=== PATIENT | female | born 1990 | race Caucasian/White ===

== ENCOUNTER → 2017-04-29 | Outpatient (CLI) | payer MEDICAID ==
[2017-04-29 09:16] LABS: Basophils % (A) 0 %; CH 28.3; CHCM 32.9; Eosinophils % (A) 1 %; HCT 44.5 % (34.0-46.0); HDW 2.52; HGB 14.2 gm/dL (11.4-16.0); Luc # (Auto) 0.16; Luc % (Auto) 3; Lymphocytes # (A) 2.2 k/uL (1.0-4.8); Lymphocytes % (A) 41 %; MCH 27.5 pg (25.0-35.0); MCHC 31.9 g/dL (31.0-37.0); MCV 86.4 fL (80.0-100.0); Mean Platelet Volume 6.8; Monocytes # (A) 0.3 k/uL (0-1.0); Monocytes % (A) 6 %; Neutrophils # (A) 2.7 k/uL (1.3-7.7); Neutrophils % (A) 49 %; RBC 5.15 m/uL (3.80-5.40); RDW 12.6 % (11.5-15.5); WBC 5.4 k/uL (3.8-10.6); WBC (Perox) 5.57
[2017-04-29 09:43] LABS: ALT 22 U/L (9-52); AST 19 U/L (14-36); Alkaline Phosphatase 84 U/L (38-126); Anion Gap 13 mmol/L; Blood Urea Nitrogen 10 mg/dL (7-17); Calcium 9.4 mg/dL (8.4-10.2); Carbon Dioxide 24 mmol/L (22-30); Chloride 105 mmol/L (98-107); Cholesterol 169 mg/dL (<200); Glucose 85 mg/dL (74-99); HDL Cholesterol 53 mg/dL (40-60); Non-African American GFR(MDRD) >60 (>60 ml/min/1.73 sqM); Potassium 4.4 mmol/L (3.5-5.1); Sodium 142 mmol/L (137-145); Total Protein 7.5 g/dL (6.3-8.2); Triglycerides 59 mg/dL (<150)
== END | disposition home or self-care (01) ==
LOC: LABWHC1 08:44
PROVIDERS: ATTEND Internal Medicine
DX: Z00.00 Encounter for general adult medical examination without abnormal findings (principal); D50.9 Iron deficiency anemia, unspecified
CPT/HCPCS: 36415; 80053; 80061; 84443; 85025

== ENCOUNTER → 2017-11-16 | Outpatient (CLI) | payer MEDICAID ==
--- NOTE | 2017-11-16 08:55 | US ---
EXAMINATION TYPE: US thyroid st tissue head/neck DATE OF EXAM: 11/16/2017 COMPARISON: Prior thyroid ultrasound May 09, 2013 CLINICAL HISTORY: Goiter E04.9. felt enlarged gland GLAND SIZE: Right Lobe: 4.7 x 1.3 x 1.0 cm Overall Parenchyma: homogenous Left Lobe: 3.9 x 1.0 x 1.3 cm Overall Parenchyma: homogeneous Isthmus Thickness: 0.4 cm NODULES RIGHT: # of nodules measured on right: 0 LEFT: # of nodules measured on left: 0 ISTHMUS: # of nodules measured in the isthmus: 0 Bilateral neck scanned, no evidence of lymphadenopathy. small cystic area left lobe as seen previously. Thyroid gland is normal in size and homogeneous in echotexture. There is 4 mm cystic nodule posterior ly lower pole level with central colloid marked towards end of study. IMPRESSION: Thyroid gland remains normal in size without new suspicious solid or cystic nodule.
--- NOTE | 2017-11-16 09:52 | USB ---
Reason for exam: clinical finding. History: Took hormonal contraceptives beginning at age 19. Indicated problem(s): lump or thickening in the left breast. Physical Findings: Nurse Summary: There is a 1.5 cm nodule in the left breast at 3:30 o'clock (nurse dw). US Breast LT Left breast ultrasound includes all four quadrants, the retroareolar region and axilla. Finding demonstrates no cystic or solid lesion seen. These results were verbally communicated with the patient and result sheet given to the patient on 11/16/17. ASSESSMENT: Negative, BI-RAD 1 RECOMMENDATION: Clinical management. Manage patient on a clinical basis.
== END | disposition home or self-care (01) ==
LOC: RADUSWWP 08:15
PROVIDERS: ATTEND Internal Medicine
DX: N63.20 Unspecified lump in the left breast, unspecified quadrant (principal); E04.9 Nontoxic goiter, unspecified
CPT/HCPCS: 76536

== ENCOUNTER 2018-09-13 18:40 | Emergency (ER) | payer OTHER, MEDICAID ==
[2018-09-13] MEDS ORDERED: SODIUM CHLORIDE 0.9% 1,000 ML IV STA (19:22)
[2018-09-13] MEDS ORDERED: ORPHENADRINE 30 MG/ML 2 ML VIAL IVP STA (19:24)
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
[2018-09-13 19:56] LABS: Basophils % (A) 0 %; Eosinophils # (A) 0.1 k/uL (0-0.7); Eosinophils % (A) 1 %; HCT 38.4 % (34.0-46.0); HGB 12.9 gm/dL (11.4-16.0); Lymphocytes % (A) 31 %; MCH 28.5 pg (25.0-35.0); MCHC 33.7 g/dL (31.0-37.0); MCV 84.5 fL (80.0-100.0); Mean Platelet Volume 6.9; Monocytes # (A) 0.4 k/uL (0-1.0); Monocytes % (A) 4 %; Neutrophils # (A) 5.9 k/uL (1.3-7.7); Neutrophils % (A) 62 %; Platelet Count 256 k/uL (150-450); RBC 4.54 m/uL (3.80-5.40); RDW 12.7 % (11.5-15.5); WBC 9.6 k/uL (3.8-10.6)
[2018-09-13 19:58] LABS: ALT 18 U/L (9-52); AST 24 U/L (14-36); Albumin 3.6 g/dL (3.5-5.0); Alkaline Phosphatase 89 U/L (38-126); Anion Gap 9 mmol/L; Blood Urea Nitrogen 11 mg/dL (7-17); Calcium 8.9 mg/dL (8.4-10.2); Carbon Dioxide 23 mmol/L (22-30); Chloride 107 mmol/L (98-107); Glucose 126 mg/dL (74-99); Potassium 3.6 mmol/L (3.5-5.1); Sodium 139 mmol/L (137-145); Total Bilirubin 0.3 mg/dL (0.2-1.3); Total Protein 6.8 g/dL (6.3-8.2)
[2018-09-13 20:08] LABS: Appearance,Urine Clear (Clear); Bacteria,Urine Rare /hpf; Bilirubin,Urine Negative (Negative); Blood,Urine Trace (Negative); Color,Urine Light Yellow; Glucose,Urine (UA) Negative (Negative); Ketones,Urine Negative (Negative); Leukocyte Esterase,Urine Trace (Negative); Mucus,Urine Occasional /hpf; Nitrite,Urine Negative (Negative); Protein,Urine Negative (Negative); RBC,Urine 1 /hpf (0-5); Squamous Epithelial Cell,Urine 1 /hpf (0-4); Urobilinogen,Urine <2.0 mg/dL (<2.0); WBC,Urine 1 /hpf (0-5)
[2018-09-13 20:18] LABS: Partial Thromboplastin Time 25.4 sec (22.0-30.0); Prothrombin Time 9.7 sec (9.0-12.0)
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
[2018-09-13] MEDS ORDERED: KETOROLAC 30 MG/ML 1 ML VIAL IVP STA (21:53)
[2018-09-13 22:11] VITALS: BP 135/81; PULSE 78; RESP 18; TEMP 98.2
== END 2018-09-13 22:05 | disposition home or self-care (01) ==
LOC: EC 18:40
DX: S16.1XXA Strain of muscle, fascia and tendon at neck level, initial encounter (principal); S39.001A Unspecified injury of muscle, fascia and tendon of abdomen, initial encounter; R51 Headache; Z53.29 Procedure and treatment not carried out because of patient's decision for other reasons; V43.52XA Car driver injured in collision with other type car in traffic accident, initial encounter; Y92.410 Unspecified street and highway as the place of occurrence of the external cause
CPT/HCPCS: 36415; 93005; 80053; 84484; 85025; 85610; 85730; 81001; 81025; 72040; 72170; 71046; 76700; 99285; 96374; 96361 ×2; J2360

== ENCOUNTER → 2019-11-23 | Outpatient (CLI) | payer OTHER ==
--- NOTE | 2019-11-24 15:36 | ECHOF ---
Referral Reason:I10 Hypertension MEASUREMENTS -------- HEIGHT: 157.5 cm WEIGHT: 78.9 kg BP: 152/87 RVIDd: 2.7 cm (< 3.3) IVSd: 0.9 cm (0.6 - 1.1) LVIDd: 4.1 cm (3.9 - 5.3) LVPWd: 1.0 cm (0.6 - 1.1) IVSs: 1.4 cm LVIDs: 2.7 cm LVPWs: 1.6 cm LA Diam: 3.0 cm (2.7 - 3.8) Ao Diam: 2.6 cm (2.0 - 3.7) AV Cusp: 2.3 cm (1.5 - 2.6) MV EXCURSION: 20.043 mm (> 18.000) MV EF SLOPE: 137 mm/s (70 - 150) EPSS: 0.3 cm MV E Jose: 0.94 m/s MV DecT: 197 ms MV A Jose: 0.50 m/s MV E/A Ratio: 1.88 TAPSE: 18.87 mm FINDINGS -------- Sinus rhythm. This was a technically good study. The left ventricular size is normal. Left ventricular wall thickness is normal. Overall left vent ricular systolic function is normal with, an EF between 55 - 60 %. The right ventricle is normal in size. Normal LA size by volume 22+/-6 ml/m2. The right atrium is normal in size. Interatrial and interventricular septum intact. The aortic valve is trileaflet and appears structurally normal. There is trace to mild mitral regurgitation. The tricuspid valve appears structurally normal. There is no pulmonic regurgitation present. The aortic root size is normal. Normal inferior vena cava with normal inspiratory collapse consistent with estimated right atrial pre ssure of 5 mmHg. There is no pericardial effusion. CONCLUSIONS -------- 1. Sinus rhythm. 2. This was a technically good study. 3. The left ventricular size is normal. 4. Left ventricular wall thickness is normal. 5. Overall left ventricular systolic function is normal with, an EF between 55 - 60 %. 6. The right ventricle is normal in size. 7. Normal LA size by volume 22+/-6 ml/m2. 8. The right atrium is normal in size. 9. Interatrial and interventricular septum intact. 10. The aortic valve is trileaflet and appears structurally normal. 11. There is trace to mild mitral regurgitation. 12. The tricuspid valve appears structurally normal. 13. There is no pulmonic regurgitation present. 14. The aortic root size is normal. 15. Normal inferior vena cava with normal inspiratory collapse consistent with estimated right atrial pressure of 5 mmHg. 16. There is no pericardial effusion. IT ANALYST: Daja Ariza RDCS
--- NOTE | 2019-11-24 16:17 | US ---
EXAMINATION TYPE: US thyroid st tissue head/neck DATE OF EXAM: 11/23/2019 COMPARISON: Prior thyroid ultrasound November 16, 2017 CLINICAL HISTORY: I10 Hypertension R22.0 Swelling, mass neck. Neck swelling, F/U GLAND SIZE: Right Lobe: 4.5 x 1.4 x 1.0 cm Overall Parenchyma: homogenous Left Lobe: 4.0 x 1.0 x 1.5 cm Overall Parenchyma: homogeneous Isthmus Thickness: 0.4 cm Bilateral neck scanned, no evidence of lymphadenopathy. Bilateral thyroid appeared wnl. Persistent homogeneous normal-size thyroid gland without discrete nodule. No significant change from prior. IMPRESSION: As above.
== END | disposition home or self-care (01) ==
LOC: RADUSWWP 15:28
PROVIDERS: ATTEND Family Medicine
DX: I10 Essential (primary) hypertension (principal); I34.0 Nonrheumatic mitral (valve) insufficiency; R22.0 Localized swelling, mass and lump, head
CPT/HCPCS: 76536; 93306

== ENCOUNTER 2020-02-07 02:59 | Emergency (ER) | payer OTHER ==
[2020-02-07 03:10] VITALS: BP 141/86; RESP 20
--- NOTE | 2020-02-07 03:25 | ED ---
Fever HPI - General Chief Complaint: Fever Stated Complaint: Fever/Cough Time Seen by Provider: 02/07/20 03:04 Source: patient, family Mode of arrival: ambulatory Limitations: no limitations - History of Present Illness Initial Comments: This patient is 29-year-old woman who presents to be evaluate for fever, sore throat, and cough. The patient states that symptoms have come on over the past day to 2 days. She notes that prior to the development of symptoms she had gone to [facility] being there from January 22-. Patient states she has been taking Tyl enol for the fever which is been getting up to the neighborhood of 101. She states cough is nonproductive. Sore throat is mild to moderate and does remind her of her previous strep infection. No difficulty with speech or swallowing. No dyspnea. MD Complaint: fever, other Onset/Timin -: days(s) Temperature Source: oral Context: recent travel Associated Symptoms: sore throat, cough Treatments Prior to Arrival: Acetaminophen - Related Data Previous Rx's Medication Instructions Recorded Cyclobenzaprine [Flexeril] 10 mg PO TID #15 tab 09/13/18 Ibuprofen 600 mg PO TID #20 tablet 09/13/18 Penicillin V Potassium [Pen Vee K] 500 mg PO QID #28 tablet 02/07/20 Allergies Allergy/AdvReac Type Severity Reaction Status Date / Time No Known Allergies Allergy Verified 02/07/20 03:10 Review of Systems ROS Statement: Those systems with pertinent positive or pertinent negative responses have been documented in the HPI. ROS Other: All systems not noted in ROS Statement are negative. Constitutional: Reports: fever. Denies: weakness ENT: Reports: throat pain Respiratory: Reports: cough. Denies: dyspnea, wheezes, hemoptysis Cardiovascular: Denies: chest pain, palpitations, syncope Gastrointestinal: Denies: abdominal pain, vomiting, diarrhea Genitourinary: Denies: dysuria, hematuria Musculoskeletal: Denies: back pain Skin: Denies: rash Neurological: Denies: headache, weakness Past Medical History Past Medical History: No Reported History History of Any Multi-Drug Resistant Organisms: None Reported Past Surgical History: Orthopedic Surgery Past Psychological History: ADD/ADHD Smoking Status: Never smoker Past Alcohol Use History: Occasional Past Drug Use History: None Reported General Exam Limitations: no limitations General appearance: alert, in no apparent distress Head exam: Present: atraumatic, normocephalic Eye exam: Present: normal appearance. Absent: scleral icterus, conjunctival injection ENT exam: Present: mucous membranes moist, other (Injection of the pharynx. Uvula is midline with no edema.) Neck exam: Present: full ROM. Absent: meningismus Respiratory exam: Present: normal lung sounds bilaterally. Absent: respiratory distress, wheezes, rales, rhonchi, stridor Cardiovascular Exam: Present: regular rate, normal rhythm, normal heart sounds. Absent: systolic murmur, diastolic murmur, rubs, gallop GI/Abdominal exam: Present: soft. Absent: distended, tenderness, guarding, rebound, rigid, mass Extremities exam: Present: normal inspection, normal capillary refill. Absent: pedal edema, calf tenderness Back exam: Present: normal inspection. Absent: CVA tenderness (R), CVA tenderness (L) Neurological exam: Present: alert Skin exam: Present: warm, dry, intact, normal color. Absent: rash Course Vital Signs 02/07/20 03:04 Temperature 101.8 F H Pulse Rate 121 H Respiratory 20 Rate Blood Pressure 141/86 O2 Sat by Pulse 98 Oximetry Medical Decision Making - Lab Data Lab Results 02/07/20 Range/Units 03:21 Group A Strep Rapid Positive A (Negative) Disposition Clinical Impression: Strep pharyngitis Disposition: HOME SELF-CARE Condition: Good Instructions (If sedation given, give patient instructions): Strep Throat (ED) Prescriptions: Penicillin V Potassium [Pen Vee K] 500 mg PO QID #28 tablet Is patient prescribed a controlled substance at d/c from ED?: No Referrals: Pia Albright MD [Primary Care Provider] - 1-2 days
[2020-02-07] MEDS ORDERED: ACETAMINOPHEN TAB 325 MG TAB PO STA (03:40)
[2020-02-07] MEDS ORDERED: PENICILLIN VK 500MG STARTER 4 TAB BTL PO STA (04:14)
[2020-02-07 04:46] VITALS: PULSE 106; TEMP 100.9
== END 2020-02-07 04:33 | disposition home or self-care (01) ==
LOC: EC 02:59
DX: J02.0 Streptococcal pharyngitis (principal)
CPT/HCPCS: 87430; 87502; 99283

== ENCOUNTER → 2021-07-08 | Outpatient (CLI) | payer OTHER ==
--- NOTE | 2021-07-08 13:26 | US ---
EXAMINATION TYPE: US thyroid st tissue head/neck DATE OF EXAM: 07/08/2021 COMPARISON: US 11/23/19 CLINICAL HISTORY: E04.9 GOITER. GLAND SIZE: Right Lobe: 3.9 x 1.1 x 1.1 cm Overall Parenchyma: homogenous Left Lobe: 3.8 x 0.9 x 1.3 cm Overall Parenchyma: homogeneous Isthmus Thickness: 0.4 cm NODULES RIGHT: # of nodules measured on right: 0 LEFT: # of nodules measured on left: 0 ISTHMUS: # of nodules measured in the isthmus: 0 Bilateral neck scanned, no evidence of lymphadenopathy. IMPRESSION: No distinct abnormality appreciated. 2017 ACR TI-RADS LEVEL: *Highest TI-RADS level nodule reported
== END ==
LOC: RADUSWWP 12:57
PROVIDERS: ATTEND Family Medicine
DX: E04.9 Nontoxic goiter, unspecified (principal)
CPT/HCPCS: 76536